=== PATIENT | female | born 1970 | race Caucasian/White ===

== ENCOUNTER 2019-10-22 08:22 | Outpatient (CLI) | payer MEDICARE, MEDICAID, SELFPAY | END 2019-10-22 08:23 | disposition home or self-care (01) | LOC: ANHAUDIO 08:25 | DX: H90.3 Sensorineural hearing loss, bilateral (principal) | CPT/HCPCS: 92557; 92567 ==

== ENCOUNTER 2019-11-21 10:30 | Outpatient (RCR) | payer MEDICAID, SELFPAY | END 2019-11-21 23:59 | disposition home or self-care (01) | LOC: ANHAUDIO 10:30 | DX: Z46.1 Encounter for fitting and adjustment of hearing aid (principal) | CPT/HCPCS: 99199; V5160; V5261; V5264 ==

== ENCOUNTER 2020-06-23 09:30 | Outpatient (RCR) | payer MEDICAID, SELFPAY | END 2020-06-23 23:59 | disposition home or self-care (01) | LOC: ANHAUDIO 09:30 | DX: Z46.1 Encounter for fitting and adjustment of hearing aid (principal) | CPT/HCPCS: 99199 ==

== ENCOUNTER 2021-03-25 12:00 | Outpatient (RCR) | payer MEDICAID, SELFPAY | END 2021-03-25 23:59 | disposition home or self-care (01) | LOC: ANHAUDIO 12:00 | PROVIDERS: Visit Provider Otolaryngology | DX: Z46.1 Encounter for fitting and adjustment of hearing aid (principal) | CPT/HCPCS: 99199; V5264 ==

== ENCOUNTER 2022-06-01 08:38 | Outpatient (CLI) | payer MEDICARE, MEDICAID, SELFPAY | END 2022-06-01 08:39 | disposition home or self-care (01) | LOC: ANHAUDIO 08:39 | PROVIDERS: Visit Provider Family Medicine | DX: Z01.10 Encounter for examination of ears and hearing without abnormal findings (principal) | CPT/HCPCS: 92557; 92567; 99199 ==